=== PATIENT | female | born 1990 | race Two or more races ===

== ENCOUNTER 2024-09-23 15:00 | Inpatient (IN) | payer OTHER ==
[~2024-09-23] VITALS: Ht 157.5 cm; Wt 3.6 kg
[2024-09-29] MEDS ORDERED: PRENATAL CAPLE1 EAC1 PO (09:38)
[2024-09-29] MEDS ORDERED: PROBIOTIC250 MG (09:40)
[2024-09-29] MEDS ORDERED: FOLIVANE-PLUS1 EACH PO (09:40)
[2024-10-01] MEDS ORDERED: ADULT ASPIRIN81 MG PO (01:22)
[2024-10-01 04:15] VITALS: BP 122/75
[2024-10-01] MEDS ORDERED: OXYTOCIN 10 UNITS/ML VIAL IV ONE (06:15)
[2024-10-01] MEDS ORDERED: CEFAZOLIN SODIUM 1,000 MG VIAL IV ONE (06:15)
[2024-10-01] MEDS ORDERED: ERYTHROMYCIN BASE OPHT 1GM EACH TUBE OP ONE (06:15)
[2024-10-01] MEDS ORDERED: MEPERIDINE HCL/PF 50 MG/ML VIAL IV SCH (06:30)
[2024-10-01] MEDS ORDERED: KETOROLAC TROMETHAMINE 60 MG VIAL IM ONE (06:30)
[2024-10-01] MEDS ORDERED: DOCUSATE CALCIUM 240 MG CAPSULE PO SCH (09:00)
[2024-10-01] MEDS ORDERED: SIMETHICONE 125 MG CAPSULE PO SCH (09:00)
[2024-10-01] MEDS ORDERED: PROMETHAZINE HCL 25 MG/ML AMPUL IV SCH (09:00)
[2024-10-01 10:17] VITALS: BP 128/82
[2024-10-01] MEDS ORDERED: OxyCODONE HCL/APAP UD (PERCOCET) PO SCH (16:00)
[2024-10-01 16:42] VITALS: BP 135/77
[2024-10-01 17:12] LABS: HEMATOCRIT 32.3 % (36.0-45.00); MEAN CELL VOLUME 90.6 fL (80.00-100.00); MEAN CORPUSCULAR HGB CONC 34.2 g/dl (32.0-36.0); PLATELET COUNT 173 K/uL (150-450); RED BLOOD COUNT 3.56 M/uL (4.00-6.00); RED CELL DISTRIBUTION WIDTH 14.2 % (11.5-14.5)
[2024-10-02] VITALS: BP 119/78
[2024-10-02 08:26] VITALS: BP 114/71
[2024-10-02] MEDS ORDERED: IBUprofen 800 MG TABLET PO PRN (13:30)
[2024-10-02 16:00] VITALS: BP 118/79
[2024-10-02 23:33] VITALS: BP 113/69
[2024-10-03 07:55] VITALS: BP 103/68
[2024-10-03] MEDS ORDERED: SURFAK240 M1 PO (13:33)
[2024-10-03] MEDS ORDERED: IBUPROFEN800 MG PO (13:33)
== END 2024-10-03 15:12 | disposition home or self-care (01) | DRG 788 ==
LOC: SURH 09-29 15:00 → OB/GYN 10-01 04:19 → LDR 10-01 04:19 → OB/GYN 10-01 05:31
PROVIDERS: ADMIT Specialist; ATTEND Specialist
PROC: 4A1HXCZ Monitoring of Products of Conception, Cardiac Rate, External Approach (ICD-10-PCS; 2024-10-01)
PROC: 10D00Z1 Extraction of Products of Conception, Low, Open Approach (ICD-10-PCS; principal; 2024-10-01 07:00)
DX: O36.8330 Maternal care for abnormalities of the fetal heart rate or rhythm, third trimester, not applicable or unspecified (principal); Z3A.40 40 weeks gestation of pregnancy; Z37.0 Single live birth; Z20.822 Contact with and (suspected) exposure to COVID-19

== ENCOUNTER 2024-09-29 09:32 | Outpatient (CLI) | payer OTHER ==
[2024-09-29 08:07] VITALS: BP 117/81
[2024-09-29] MEDS ORDERED: PRENATAL CAPLE1 EAC1 PO (09:38)
[2024-09-29] MEDS ORDERED: PROBIOTIC250 MG (09:40)
[2024-09-29] MEDS ORDERED: FOLIVANE-PLUS1 EACH PO (09:40)
[2024-09-29] MEDS ORDERED: RINGERS SOLUTION,LACTATED 1,000 ML IV SCH (10:45)
[2024-09-29 10:55] LABS: HEMATOCRIT 34.8 % (36.0-45.00); HEMOGLOBIN 12.3 g/dL (12.0-15.00); MEAN CELL VOLUME 88.9 fL (80.00-100.00); MEAN CORPUSCULAR HEMOGLOBIN 31.4 pg (27.00-32.0); MEAN CORPUSCULAR HGB CONC 35.3 g/dl (32.0-36.0); PLATELET COUNT 179 K/uL (150-450); RED BLOOD COUNT 3.92 M/uL (4.00-6.00); RED CELL DISTRIBUTION WIDTH 14.6 % (11.5-14.5)
[2024-09-29 11:02] LABS: PH,URINE 5.5 (5.0-8.0); URINE APPEARANCE Clear; URINE BILIRRUBIN Negative (NEGATIVE); URINE BLOOD Negative; URINE COLOR Yellow; URINE GLUCOSE Negative (NEGATIVE); URINE KETONE Negative (NEGATIVE); URINE LEUKOCYTE Small; URINE NITRATE Negative; URINE PROTEIN Negative (NEGATIVE); URINE UROBILINOGEN 0.2 E.U./dl
[2024-09-29 11:06] LABS: URINE BACTERIA 265.8 uL (0.0-1933); URINE EPITHELIAL CELLS 25.3 uL (0.0-38.8); URINE WBC 57.9 uL (0.0-23.2)
[2024-09-29 11:12] LABS: URINE CAST 0.15 uL (0.0-1.40); URINE RBC 0.7 uL (0.0-20.8)
[2024-09-29 12:15] VITALS: BP 115/72; O2SAT 98
[2024-09-29 15:37] VITALS: BP 121/77
[2024-09-29 18:17] VITALS: BP 121/77
== END 2024-09-29 18:17 | disposition home or self-care (01) ==
LOC: OBS/DEL 09:32
PROVIDERS: ATTEND Specialist
DX: O26.893 Other specified pregnancy related conditions, third trimester (principal); O26.849 Uterine size-date discrepancy, unspecified trimester; O36.8199 Decreased fetal movements, unspecified trimester, other fetus; O09.519 Supervision of elderly primigravida, unspecified trimester; Z3A.40 40 weeks gestation of pregnancy

== ENCOUNTER → 2024-10-01 | Outpatient (CLI) | payer OTHER ==
[2024-09-30 23:40] VITALS: BP 132/84
[~2024-10-01] MED LIST: ADULT ASPIRIN81 MG PO; FOLIVANE-PLUS1 EACH PO; IBUPROFEN800 MG PO; PRENATAL CAPLE1 EAC1 PO; PROBIOTIC250 MG; SURFAK240 M1 PO
[2024-10-01 03:19] VITALS: BP 122/75
== END | disposition still patient (30) ==
LOC: OBS/DEL 00:59
PROVIDERS: ATTEND Specialist
DX: O26.893 Other specified pregnancy related conditions, third trimester (principal)